=== PATIENT | female | born 1975 | race Caucasian/White ===

== ENCOUNTER 2021-12-27 16:06 | Outpatient (CLI) | payer SELFPAY ==
[2021-12-27 20:27] LABS: Iron* 67 ug/dL (37-170)
[2021-12-27 20:36] LABS: Percent Iron Saturation 22 % (20-50); Total Iron Binding Capacity 309 ug/dL (265-497)
[2021-12-29 11:48] LABS: Follicle Stimulating Hormone 4.5 IU/L
== END 2021-12-27 16:07 | disposition home or self-care (01) ==
PROVIDERS: Visit Provider Obstetrics & Gynecology
DX: Z01.419 Encounter for gynecological examination (general) (routine) without abnormal findings (principal); D64.9 Anemia, unspecified; N95.1 Menopausal and female climacteric states; F41.9 Anxiety disorder, unspecified
CPT/HCPCS: 83001; 83540; 83550

== ENCOUNTER 2022-05-16 10:07 | Outpatient (CLI) | payer SELFPAY | END 2022-05-16 10:08 | disposition home or self-care (01) | PROVIDERS: Visit Provider Family Medicine | DX: F41.9 Anxiety disorder, unspecified (principal); Z13.1 Encounter for screening for diabetes mellitus; Z13.6 Encounter for screening for cardiovascular disorders | CPT/HCPCS: 80048; 80061 ==

== ENCOUNTER 2023-08-08 13:30 | Emergency (ER) | payer OTHER, SELFPAY ==
[2023-08-08 13:49] VITALS: BP 122/76; PULSE 100; RESP 18; TEMP 37.1; O2SAT 100; BMI 25.7
[2023-08-08] MEDS: RABIES IMMUNE GLOBULIN 150 UNIT/ML INJ 1365 UNIT INFILTRATI (14:00)
--- NOTE | 2023-08-08 14:01 | ED.GENADULT ---
HPI - General Adult General Chief complaint: Animal Bite Stated complaint: Woke up to Bat Sunday-rabies pos Bat Time Seen by Provider: 08/08/23 13:37 History of Present Illness HPI narrative: Patient is a 48 year white female who found a bat in her room couple of days ago, they were able to kill the bat and sent for analysis and it is positive for rabies. MD recommended treatment. Patient has been asymptomatic. She does report she has a chronic Lyme disease/chronic fatigue syndrome type problem. She has had allergies to Cipro and steroids. No vaccine allergies. Related Data Previous Rx's ?Medication ?Instructions ?Recorded escitalopram oxalate 10 mg tablet 10 mg PO QDAY #90 tabs 05/16/22 escitalopram oxalate 5 mg tablet 5 mg PO QDAY #30 tabs 05/16/22 diazepam 5 mg tablet 2.5 - 5 mg (0.5 - 1 x 5 mg) PO TID 04/24/23 PRN anxiety #30 tabs Allergies Allergy/AdvReac Type Severity Reaction Status Date / Time Ciprofloxacin Allergy Intermediate Unknown Uncoded 05/16/22 09:51 Steroids Allergy Mild Unknown Uncoded 05/16/22 09:51 Review of Systems Status of ROS: Reports: 6 or more systems reviewed and unremarkable except as noted in History and below [facility] Surgical History History of laparotomy ?Z98.890 - Other specified postprocedural states (ICD-10) S/P appendectomy ?Z90.49 - Acquired absence of other specified parts of digestive tract (ICD-10) History of tubal ligation (02/16/12) ?Z98.51 - Tubal ligation status (ICD-10) Social History Smoking Status: Former smoker Little interest or pleasure in doing things: several days Feeling down, depressed, or hopeless: nearly every day Exam Narrative: Exam Narrative: Objective: Patient is no apparent distress, denies any bites or findings under skin Vital signs are within normal limits, no neurologic complaint Const: Vital Signs, click to edit/add: Vital Signs - 24 hr 08/08/23 13:49 Temperature 98.8 F Pulse Rate [Left P ulse Oximeter] 100 Respiratory Rate 18 Blood Pressure [Le ft Upper Arm] 122/76 Pulse Oximetry 100 Oxygen Delivery Me thod Room Air Course Vital Signs Vital signs: Initial Vital Signs Temperature 98.8 F 08/08/23 13:49 Temperature Source Temporal Artery Scan 08/08/23 13:49 Pulse Rate 100 08/08/23 13:49 Pulse Rhythm Regular 08/08/23 13:49 Pulse Strength 3+ Normal 08/08/23 13:49 Respiratory Rate 18 08/08/23 13:49 Blood Pressure 122/76 08/08/23 13:49 Blood Pressure Mean 91 08/08/23 13:49 Blood Pressure Position Sitting 08/08/23 13:49 Pulse Oximetry 100 08/08/23 13:49 Oxygen Delivery Method Room Air 08/08/23 13:49 Vital Signs Temperature 98.8 F 08/08/23 13:49 Pulse Rate 100 08/08/23 13:49 Respiratory Rate 18 08/08/23 13:49 Blood Pressure 122/76 08/08/23 13:49 Pulse Oximetry 100 08/08/23 13:49 Oxygen Delivery Method Room Air 08/08/23 13:49 Temperature 98.8 F 08/08/23 13:49 Pulse Rate 100 08/08/23 13:49 Respiratory Rate 18 08/08/23 13:49 Blood Pressure 122/76 08/08/23 13:49 Pulse Oximetry 100 08/08/23 13:49 Oxygen Delivery Method Room Air 08/08/23 13:49 Medical Decision Making MDM Narrative Medical decision making narrative: 48-year-old female with bat exposure, bat tested positive for rabies. At this point would recommend rabies vaccine and immunoglobulin. Will follow up for vaccine on day 3, 7, and 14. They will come here and have that done. Discharge Plan Discharge Clinical Impression: Rabies contact Patient Disposition: Home, Self-Care Condition: Stable Additional Instructions: Return 3 days from now, 7 days from now, 14 days from now to receive additional vaccine dosages for rabies. Activity Level: No Restrictions Discharge Diet: Regular Prescriptions: No Action escitalopram oxalate 5 mg tablet 5 mg PO QDAY Qty: 30 0RF escitalopram oxalate 10 mg tablet 10 mg PO QDAY Qty: 90 1RF diazepam 5 mg tablet 2.5 - 5 mg PO TID PRN (Reason: anxiety) Qty: 30 1RF Follow Up/Referrals: Provider,Not a Local [Primary Care Provider] - Stand Alone Forms: [facility] Info Instructions
== END 2023-08-08 14:43 | disposition home or self-care (01) ==
LOC: ED 14:20
PROVIDERS: Emergency Provider Family Medicine
DX: Z20.3 Contact with and (suspected) exposure to rabies (principal)
CPT/HCPCS: 90377; 90675; 99283

== ENCOUNTER 2023-08-22 08:24 | Outpatient (RCR) | payer OTHER, SELFPAY ==
[2023-08-11 08:35] VITALS: BP 119/76; PULSE 87; RESP 18; TEMP 36.7; O2SAT 99
[2023-08-15 08:20] VITALS: BP 134/87; PULSE 86; RESP 16; TEMP 36.7; O2SAT 100
[2023-08-22 08:51] VITALS: BP 112/72; PULSE 69; RESP 18; TEMP 36.9; O2SAT 99
== END 2023-08-22 09:00 | disposition home or self-care (01) ==
PROVIDERS: Visit Provider Family Medicine
DX: Z23 Encounter for immunization (principal); Z20.3 Contact with and (suspected) exposure to rabies
CPT/HCPCS: 80307; 90471; 90675

== ENCOUNTER 2024-01-08 11:54 | Outpatient (CLI) | payer SELFPAY | END 2024-01-08 11:55 | disposition home or self-care (01) | PROVIDERS: PCP Family Medicine; Visit Provider Family Medicine | DX: R10.32 Left lower quadrant pain (principal) | CPT/HCPCS: 80053; 86140 ==

== ENCOUNTER 2024-01-17 14:59 | Outpatient (CLI) | payer SELFPAY ==
--- NOTE | 2024-01-17 15:15 | CRLHL7_ITS ---
For Patients: As a result of the Century Cures Act, medical imaging exams and procedure reports are released immediately into your electronic medical record. You may view this report before your referring provider. If you have questions, please contact your health care provider. INDICATION: Dysuria and pelvic pain TECHNIQUE: Transabdominal and transvaginal scanning was performed. Transvaginal scanning was performed to optimally evaluate the adnexa. Ovarian blood flow was evaluated with color-flow and pulsed Doppler. COMPARISON: None. FINDINGS: The uterus has been removed. The ovaries are normal in size. No follicle is evident. The right ovary measures 2.9 x 2.1 x 1.6 cm and left 2.4 x 1.7 x 1.5 cm. Ovarian blood flow is demonstrated with color-flow and pulsed Doppler. No adnexal mass is evident. No free fluid is demonstrated. IMPRESSION: 1. Ovary is normal in size but no follicle evident. 2. No adnexal abnormality. 3. Post hysterectomy. Dictated by Yash Gerber MD @ 01/18/2024 4:08:49 PM (Electronically Signed)
== END 2024-01-17 15:00 | disposition home or self-care (01) ==
LOC: US 15:00
PROVIDERS: PCP Family Medicine; Visit Provider Family Medicine
DX: R10.2 Pelvic and perineal pain (principal); R30.0 Dysuria
CPT/HCPCS: 76830; 76856; 93976

== ENCOUNTER 2024-03-12 14:42 | Outpatient (CLI) | payer SELFPAY | END 2024-03-12 14:43 | disposition home or self-care (01) | PROVIDERS: PCP Family Medicine; Visit Provider Physician Assistant Medical | DX: R35.0 Frequency of micturition (principal) | CPT/HCPCS: 80053; 82043; 82570; 86301 ==

== ENCOUNTER 2024-04-01 11:50 | Outpatient (CLI) | payer OTHER, SELFPAY | END 2024-04-01 11:51 | disposition home or self-care (01) | LOC: FRMREF 11:54 | PROVIDERS: PCP Family Medicine; Visit Provider Family Medicine | DX: M54.50 Low back pain, unspecified (principal); R10.2 Pelvic and perineal pain | CPT/HCPCS: 80053 ==

== ENCOUNTER 2024-05-22 12:11 | Outpatient (CLI) | payer OTHER, SELFPAY ==
--- NOTE | 2024-05-22 12:34 | P.ANES_ITS ---
Anesthesia Charges Start Date/Time Anesthesia Start Date: 05/22/24 Anesthesia Start Time: 12:58 Stop Date/Time Anesthesia Stop Date: 05/22/24 Anesthesia Stop Time: 13:12 Coding CPT Codes CPT Codes: ANES UPR GI NDSC PX NOS - 58115 ([id number]) P2 - PATIENT W/MILD SYST DISEASE, QK - FIRE WATCHMAN 2-4 CNCRNT ANES PROC, QX - SOCK KNITTING MACHINE OPERATOR SVC W/ MD MED DIRECTION
--- NOTE | 2024-05-22 12:34 | W.ANESCHARGE ---
Anesthesia Charges Start Date/Time Anesthesia Start Date: 05/22/24 Anesthesia Start Time: 12:58 Stop Date/Time Anesthesia Stop Date: 05/22/24 Anesthesia Stop Time: 13:12 Coding CPT Codes CPT Codes: ANES UPR GI NDSC PX NOS - 78872 ([id number]) P2 - PATIENT W/MILD SYST DISEASE, QK - COFFEE SUPERVISOR 2-4 CNCRNT ANES PROC, QX - WATER POLLUTION SPECIALIST SVC W/ MD MED DIRECTION
--- NOTE | 2024-05-22 13:37 | P.ANES_ITS ---
Anesthesia Charges Start Date/Time Anesthesia Start Date: 05/22/24 Anesthesia Start Time: 12:58 Stop Date/Time Anesthesia Stop Date: 05/22/24 Anesthesia Stop Time: 13:12 Coding CPT Codes CPT Codes: ANES UPR GI NDSC PX NOS - 82361 ([id number]) QK - PAINT DIPPER 2-4 CNCRNT ANES PROC, QX - DICE MANAGER SVC W/ MD MED DIRECTION, P2 - PATIENT W/MILD SYST DISEASE
--- NOTE | 2024-05-22 13:37 | W.ANESCHARGE ---
Anesthesia Charges Start Date/Time Anesthesia Start Date: 05/22/24 Anesthesia Start Time: 12:58 Stop Date/Time Anesthesia Stop Date: 05/22/24 Anesthesia Stop Time: 13:12 Coding CPT Codes CPT Codes: ANES UPR GI NDSC PX NOS - 95874 ([id number]) QK - WILDLIFE TECHNICIAN 2-4 CNCRNT ANES PROC, QX - EXTERIOR INTERIOR SPECIALIST SVC W/ MD MED DIRECTION, P2 - PATIENT W/MILD SYST DISEASE
== END 2024-05-22 12:12 | disposition home or self-care (01) ==
LOC: OP CLINIC 12:12
PROVIDERS: PCP Family Medicine; Visit Provider Surgery
DX: R10.13 Epigastric pain (principal); K31.7 Polyp of stomach and duodenum
CPT/HCPCS: 00731; 43239; J2704; J3490